=== PATIENT | female | born 1995 | race African-American/Black ===

== ENCOUNTER 2017-07-22 09:23 | Emergency (ER) | payer OTHER ==
[~2017-07-22] VITALS: Ht 175.3 cm; Wt 156.5 kg
[~2017-07-22 09:23] MED LIST: NIT0.4 SL
[2017-07-22 09:28] VITALS: Ht 175.3 cm; Wt 156.5 kg
[2017-07-22 11:00] VITALS: BP 114/68
== END 2017-07-22 11:21 | disposition home or self-care (01) ==
LOC: ED 09:23
DX: S29.011A Strain of muscle and tendon of front wall of thorax, initial encounter (principal); V49.9XXA Car occupant (driver) (passenger) injured in unspecified traffic accident, initial encounter; Y93.89 Activity, other specified; Y92.89 Other specified places as the place of occurrence of the external cause; Y99.8 Other external cause status
CPT/HCPCS: J1885; Q0092

== ENCOUNTER 2017-12-31 16:42 | Emergency (ER) | payer OTHER ==
[~2017-12-31] VITALS: Ht 175.3 cm; Wt 127.0 kg
[2017-12-31 16:50] VITALS: Ht 175.3 cm; Wt 127.0 kg
[2017-12-31 17:14] VITALS: BP 123/84
== END 2017-12-31 17:14 | disposition other institution (70) ==
LOC: ED 16:42
DX: Z02.89 Encounter for other administrative examinations (principal)